=== PATIENT | female | born 1950 | race Caucasian/White ===

== ENCOUNTER 2025-10-30 13:00 | Outpatient (AMB) | payer MEDICARE, SELFPAY ==
--- OUTSIDE RECORDS SUMMARY | 2025-10-30 13:03 | XMS_ITS | Clinical Summary ---
Author Organization [facility] Address [address] [address] Phone Care Team Providers Care Predatory Hunter Name Role Phone Francia Wilson MD Primary Care Provider [phone] Medications gabapentin (NEURONTIN) 300 MG capsule Take 600 mg by mouth nightly at bedtime. 01/25/2025 Active latanoprost (XALATAN) 0.005 % ophthalmic solution Place 1 drop into each eye nightly at bedtime. 07/27/2025 Active lisinopril (PRINIVIL,ZESTR IL) 5 MG tablet Take 5 mg by mouth daily. 09/24/2025 Active tobramycin-dexA METHasone (TOBRADEX) ophthalmic suspension Place 1 drop into each eye every 6 (six) hours. 08/09/2025 Active zolpidem (AMBIEN CR) 12.5 MG CR tablet Take 12.5 mg by mouth nightly at bedtime as needed for sleep. Active Active Problems Problem Noted Date Diagnosed Date Primary osteoarthritis involving multiple joints 09/30/2025 Assessment & Plan (09/30/2025 1:28 PM EST): OA of multiple joints including her spine resulting in slowed, antalgic gait. Handicap placard filled out for patient today as she uses a cane for ambulation. Polycystic kidney disease 09/30/2025 Assessment & Plan (09/30/2025 1:28 PM EST): Follows with nephrology Benign essential hypertension 09/30/2025 Assessment & Plan (09/30/2025 1:28 PM EST): Recently initiated on lisinopril 5 mg daily, BP slightly above goal today. Continue antihypertensive medication regimen. Encounters Date Type Department Care Team Description 10/11/2025 Transcribe Orders Virtual Department [address] [place] [address] Hossein Glaser MD Essential (primary) hypertension (Primary Dx); Adult type polycystic kidney 10/08/2025 Transcribe Orders Virtual Department [address] [place] [address] Hossein Glaser MD 10/08/2025 Orders Only [facility] [address] [place] [address] Francia Wilson MD Hyperkalemia (Primary Dx) 10/06/2025 Orders Only [address] [address] ProviderUmair MD 09/30/2025 1:15 PM EST Office Visit [facility] [address] [place] [address] Francia Wilson MD Primary osteoarthritis involving multiple joints (Primary Dx); Screening for condition; Screening for cardiovascular condition; Polycystic kidney disease; Benign essential hypertension 09/23/2025 Telephone [facility] [address] [place] [address] Pcp, Unknown Appointment ([facility] + handicap placard) from Last 3 Months Social History Tobacco Use Types Packs/Day Years Used Date Smoking Tobacco: Never Assessed Education Answer Date Recorded Are you interested in more education? Not on claire e 07/13/2025 Are you concerned about learning? Not on file 07/13/2025 No 07/13/2025 No 07/13/2025 Digital Access Answer Date Recorded No 07/13/2025 No 07/13/2025 Reliable internet access at home? Not on file 07/13/2025 Device with a working camera? Not on file Comments Unknown Sex and Gender Information Value Date Recorded Sex Assigned at Not on file Legal Sex Female 1:17 PM EDT Gender Identity Not on file Sexual Orientation Not on file Last Filed Vital Signs Vital Sign Reading Time Taken Comments Blood Pressure 138/62 09/30/2025 1:11 PM EST Pulse 67 09/30/2025 1:11 PM EST Temperature 36.4 C (97.6 F) 09/30/2025 1:11 PM EST Respiratory Rate - - Oxygen Saturation 97% 09/30/2025 1:11 PM EST Inhaled Oxygen Concentration - - Weight - - Height - - Body Mass Index - - Plan of Treatment Upcoming Encounters Date Type Department Care Team (Late st Contact Info) Description 10/11/2025 Procedure Pass [address] [place] [address] 11/11/2025 4:45 PM EST Appointment [address] [place] [address] Hossein Glaser MD [address] [facility] [address] [place] [address] 03/09/2026 10:00 AM EDT Office Visit [facility] [address] [place] [address] Francia Wilson MD [address] [facility] [address] [place] [address] [email or web address] Health Maintenance Due Date Last Done Comments Adult Td,Tdap Booster 1950 LIPID PANEL 1950 DEPRESSION SCREENING 1962 SMOKING Hx and SMOKELESS TOBACCO SCREENING 1963 HEPATITIS C SCREENING 1968 COLOGUARD 1995 COLONOSCOPY 1995 COLORECTAL CANCER SCREENING 1995 FIT TEST 1995 FOBT 1995 SIGMOIDOSCOPY 1995 VIRTUAL COLONOSCOPY 1995 ZOSTER VACCINES (1 of 2) 2000 OSTEOPOROSIS SCREENING INITI AL (ONE-TIME) 2015 INFLUENZA VACCINE (#1) 2025 RSV VACCINE (1 - 1-dose 75+ series) 2025 COVID-19 VACCINE (1 - 2024-2 6 season) 2025 BLOOD PRESSURE 03/30/2026 09/30/2025 CREATININE LEVEL 10/11/2026 10/11/2025, 09/30/2025 POTASSIUM LEVEL 10/11/2026 10/11/2025 PNEUMOCOCCAL VACCINES (50+ years) Completed 02/01/2022 HEPATITIS A VACCINES Aged Out No long er eligible based on patient's age to complete this topic HIB VACCINES Aged Out No longer eligi ble based on patient's age to complete this topic MENINGOCOCCAL VACCINES (ACWY) Aged Out No longer eligible based on patient's age to complete this topic MENINGOCOCCAL VACCINES (B) Aged Out N o longer eligible based on patient's age to complete this topic Medical Devices Not on file Procedures Procedure Name Priority Date/Time Associated Diagnosis Comments BASIC METABOLIC PANEL (BMP) Routine 10/11/2025 1:31 PM EST Hyperkalemia IRON AND IRON BINDING CAPACITY Routine 10/11/2025 1:31 PM EST Polycystic kidney disease FERRITIN Routine 10/11/2025 1:31 PM EST Polycystic kidney disease OUTSIDE LAB Routine 10/06/2025 12:36 PM EST from Last 3 Months Results * Iron and Total Iron Binding Capacity (Iron/TIBC) (10/11/2025 1:31 PM EST) Iron 60 28 - 170 ug/dL 10/11/2025 3:10 PM EST [facility] Total Iron-Binding Capacity (TIBC) 297 220 - 460 ug/dL 10/11/2025 3:10 PM EST [facility] Transferrin Saturation 20 14 - 50 % 10/11/2025 3:10 PM EST [facility] Blood (Blood) Venipuncture / Unknown 10/11/2025 1:31 PM EST 10/11/2025 1:50 PM EST us Francia Wilson MD LAB BLOOD BKR ORDERABLES Fi nal Result [address] [address] * Ferritin (10/11/2025 1:31 PM EST) Ferritin 97 30 - 150 ug/L 10/11/2025 3:10 PM [facility] Comment:The lower limit of t he reference range has been increased to 30 ug/L for all adults to reflect a physiologically sufficient level. See Document Link for additional information. Blood (Blood) Venipuncture / Unknown 10/11/2025 1:31 PM EST 10/11/2025 1:50 PM EST Francia Wilson MD LAB BLOOD BKR ORDERABLES Fi nal Result [address] [address] * (ABNORMAL) Basic Metabolic Panel (BMP) (10/11/2025 1:31 PM EST) Pathologist [facility] Sodium 143 136 - 145 mmol/L 10/11/2025 3:10 PM [facility] Potassium 4.4 3.4 - 5.1 mmol/L 10/11/2025 3:10 PM [facility] Chloride 106 98 - 107 mmol/L 10/11/2025 3:10 PM [facility] CO2 22 20 - 31 mmol/L 10/11/2025 3:10 PM [facility] Anion Gap 15 3 - 17 mmol/L 10/11/2025 3:10 PM [facility] BUN 33(H) 6 - 23 mg/dL 10/11/2025 3:10 PM [facility] Creatinine 1.60(H) 0.50 - 1.00 mg/dL 10/11/2025 3:10 PM [facility] eGFR 33(L) >59 mL/min/1.7 3m2 10/11/2025 3:10 PM [facility] Comment:Estimated glomerular filtration rate calculated using the CKD-EPI refit equation. Glucose 95 70 - 99 mg/dL 10/11/2025 3:10 PM [facility] Calcium 9.1 8.5 - 10.5 mg/dL 10/11/2025 3:10 PM EST [facility] Blood (Blood) Venipuncture / Unknown 10/11/2025 1:31 PM EST 10/11/2025 1:50 PM EST Francia Wilson MD LAB BLOOD BKR ORDERABLES Fi nal Result [facility] [address] [place] [address] * Outside Lab (Non-MGB) (10/06/2025 12:36 PM EST) us Historical Provider LAB BLOOD BKR ORDERABLES Final Result from Last 3 Months Insurance [facility] MEDICARE REPLACEMENT MEDICARE PART A & B [facility] MEDICARE REPLACEMENT MEDICARE PART A & B [facility] MEDICARE REPLACEMENT MEDICARE PART A & B [facility] MEDICARE REPLACEMENT MEDICARE PART A & B [facility] MEDICARE REPLACEMENT MEDICARE PART A & B [facility] MEDICARE REPLACEMENT MEDICARE PART A & B Care Teams Predatory Hunter Relationship Specialty Start Date End Date Francia Wilson MD [address] [place] [address] [address] [place] [address] [email or web address] PCP - General Family Medicine 09/30/25 Additional Source Comments The information contained in this document represents components of the legal health record. It is not the complete legal health record.[facility]
--- OUTSIDE RECORDS SUMMARY | 2025-10-30 13:04 | XMS_ITS | Encounter Summary ---
Author Organization [facility] Address [address] [facility] [address] [place] [address] Phone Care Team Providers Care Inspector Missile Name Role Phone Francia Wilson MD Primary Care Provider [phone] Encounter Details Date Type Department Care Team (Late st Contact Info) Description 10/08/2025 Transcribe Orders Virtual Department [address] [place] [address] Hossein Glaser MD [address] [facility] [address] [place] [address] [email or web address] Social History Tobacco Use Types Packs/Day Years [...] on file Sexual Orientation Not on file documented as of this encounter Plan of Treatment Upcoming Encounters Date Type Department Care Team (Late st Contact Info) Description 10/11/2025 Procedure Pass [facility] - [address] [place] [address] 11/11/2025 4:45 PM EST Appointment [facility] - [address] [place] [address] Hossein Glaser MD [address] [facility] [address] [place] [address] [email or web address] 03/09/2026 10:00 AM EDT Office Visit [facility] [address] [place] [address] Francia Wilson MD [address] [facility] [address] [place] [address] [email or web address] documented as of this encounter Visit Diagnoses Not on filedocumented in this encounter Care Teams Inspector Missile Relationship Specialty Start Date End Date Francia Wilson MD [address] [facility] [address] [place] [address] [email or web address] PCP - General Family Medicine 09/30/25 documented as of this encounter Additional Source Comments The information contained in this document represents components of the legal health record. It is not the complete legal health record.[facility]
[2025-10-30 13:23] VITALS: BP 132/80; PULSE 98; TEMP 36.8; O2SAT 97; BMI 30.1
--- NOTE | 2025-10-30 13:23 | AM.OFFWIN_ITS ---
Intake Vital Signs 10/30/25 13:23 Height 5 ft 3 in Weight 170 lb BMI 30.1 BP 132/80 Blood Pressure Location Lt brachial Position Sitting Pulse 98 Pulse Source Pulse Oximeter Temp 98.3 F Temp Source Oral Pulse Oximetry (%) 97 Intake Visit Reasons: EP Right eye irritated Patient Tobacco Use Status: Never used Tobacco Allergies No Known Allergies Allergy (Verified 10/30/25 13:23) Do you need a note to return to daycare/school/sports/work: No HPI HPI Comments History of Present Illness Details This is a 75-year-old female who presented to the walk-in clinic complaining of bilateral eye irritation, itching, and watery discharge x3 days. Patient states that her symptoms started in her right eye with irritation of the outer corner and she started to develop runny and watery discharge. She states that she then started to develop symptoms in her left eye. She denies any foreign body or injury to the eye. She denies any visual disturbances. She denies any viral URI symptoms such as nasal congestion, rhinorrhea, or sore throat. She denies any fevers or chills. She denies any eyelid swelling or erythema. She denies any purulent drainage/discharge or crusting of the eyes. There is no periorbital edema or erythema. [facility] Social History Patient Tobacco Use Status: Never used Tobacco Review of Systems Const All systems reviewed & are unremarkable except as noted in HPI and below Reports no additional complaints Eyes Reports no additional complaints ENT Reports no additional complaints Card Reports no additional complaints Resp Reports no additional complaints GI Reports no additional complaints Reports no additional complaints Musc Reports no additional complaints Skin/Breast Reports system reviewed and no additional complaints, except as documented Neuro Reports no additional complaints Psych Reports no additional complaints Endo Reports no additional complaints Rubin/Lymph Reports no additional complaints Aller/Immun Reports no additional complaints Physical Exam Exam Exam: Vital signs reviewed. Constitutional: Non-toxic appearing. No acute distress. Well-developed and well-nourished. HEENT: Normocephalic and atraumatic. PERRL/EOMI. Minimal conjunctival injection bilaterally without any evidence of foreign body. There is minimal watery discharge/drainage. There is no purulence discharge or drainage. Skin: Warm and dry. No rashes or lesions noted. Neck: Full and painless range of motion. No cervical lymphadenopathy. Cardio: Regular rate. Pulmonary: No respiratory distress. No accessory muscle usage. Gastrointestinal: Soft, non-tender, and non-distended in all 4 quadrants. Musculoskeletal: Normal range of motion in joints throughout the body. No deformity or other signs of injury. Neuro: Alert and oriented x4. Cranial nerves 2-12 grossly intact. No focal deficits appreciated. Psych: Normal mood and affect. Vital Signs: Last Vital Signs Temp 98.3 F 10/30/25 13:23 Pulse 98 10/30/25 13:23 BP 132/80 10/30/25 13:23 Pulse Ox 97 10/30/25 13:23 BMI result Body Mass Index 30.1 Assessment & Plan Assessment & Plan (1) Viral conjunctivitis of both eyes: Code(s): B30.9 - Viral conjunctivitis, unspecified Plan 75-year-old female who presented to the walk-in clinic complaining of bilateral eye irritation, itching, and watery discharge x3 days. On physical examination, there is minimal conjunctival injection with minimal watery discharge from both eyes Differential diagnosis includes viral versus allergic conjunctivitis. Low suspicion for bacterial conjunctivitis given no evidence of mucopurulent discharge. Recommended symptomatic management including cool compresses, [id number] artificial tears, as well as trial of olopatadine eye drops. She was also reminded to practice good hand hygiene as viral conjunctivitis can be extremely contagious. She was advised to follow-up here if she were to develop purulent discharge, eyelid edema/erythema, or worsening/persistent symptoms. Patient verbalized her understanding and she is in agreement with the plan. Coding Level of Care Code Est Pt Level 3 (17074) Diagnoses Viral conjunctivitis of both eyes B30.9
== END 2025-10-30 14:16 | disposition home or self-care (01) ==
PROVIDERS: Visit Provider Physician Assistant Medical
DX: B30.9 Viral conjunctivitis, unspecified (principal)

== ENCOUNTER → 2025-10-30 13:00 | Outpatient (BNVA) | payer MEDICARE, SELFPAY | PROVIDERS: Visit Provider Physician Assistant Medical | DX: B30.9 Viral conjunctivitis, unspecified (principal) | CPT/HCPCS: 99212 ==